=== PATIENT | female | born 1940 | race Caucasian/White ===

== ENCOUNTER → 2016-12-11 | Outpatient (CLI) | payer MEDICARE, BC ==
[~2016-12-11] MED LIST: COUMADIN5 MG PO; DIOVAN80 MG PO; PERCOCET 325 MG1 TA2 PO
== END ==
LOC: MC.RAD 12-05 09:20
DX: Z12.31 Encounter for screening mammogram for malignant neoplasm of breast (principal)

== ENCOUNTER → 2017-12-20 | Outpatient (CLI) | payer MEDICARE, BC | LOC: COL.RAD 09:48 | DX: M25.551 Pain in right hip (principal) | CPT/HCPCS: J3301; Q9967 ==

== ENCOUNTER → 2018-01-03 | Outpatient (CLI) | payer MEDICARE, BC | LOC: MC.RAD 07:47 | DX: Z12.31 Encounter for screening mammogram for malignant neoplasm of breast (principal) ==

== ENCOUNTER → 2018-11-19 | Outpatient (CLI) | payer MEDICARE, BC | LOC: COL.RAD 11-06 08:15 | DX: M51.26 Other intervertebral disc displacement, lumbar region (principal); M48.07 Spinal stenosis, lumbosacral region; M89.38 Hypertrophy of bone, other site; N28.1 Cyst of kidney, acquired ==

== ENCOUNTER → 2018-12-23 | Outpatient (CLI) | payer MEDICARE, BC | LOC: MHCPAIN 10:06 | DX: G89.29 Other chronic pain (principal); M47.817 Spondylosis without myelopathy or radiculopathy, lumbosacral region; M54.16 Radiculopathy, lumbar region; M53.3 Sacrococcygeal disorders, not elsewhere classified; M48.061 Spinal stenosis, lumbar region without neurogenic claudication | CPT/HCPCS: G0463 ==

== ENCOUNTER → 2019-01-06 | Outpatient (CLI) | payer MEDICARE, BC | LOC: MC.RAD 10:46 | DX: Z12.31 Encounter for screening mammogram for malignant neoplasm of breast (principal) ==

== ENCOUNTER → 2019-01-09 | Outpatient (CLI) | payer MEDICARE, BC | LOC: MHCPAIN 10:21 | DX: M47.817 Spondylosis without myelopathy or radiculopathy, lumbosacral region (principal); M54.16 Radiculopathy, lumbar region | CPT/HCPCS: J1100; Q9967 ==

== ENCOUNTER → 2019-01-13 | Outpatient (CLI) | payer MEDICARE, BC | LOC: MHCPAIN 10:41 | DX: G89.29 Other chronic pain (principal); M47.817 Spondylosis without myelopathy or radiculopathy, lumbosacral region; M54.16 Radiculopathy, lumbar region; M53.3 Sacrococcygeal disorders, not elsewhere classified; M48.061 Spinal stenosis, lumbar region without neurogenic claudication | CPT/HCPCS: G0463 ==

== ENCOUNTER 2019-04-21 13:43 | Emergency (ER) | payer MEDICARE, BC ==
[~2019-04-21] VITALS: Ht 160 cm; Wt 100.0 kg
[2019-04-21 14:02] VITALS: TEMP 97.9
[2019-04-21] MEDS ORDERED: COUMADIN 22.5 MG/TAB PO (14:09)
[2019-04-21] MEDS ORDERED: COUMADIN 5MG5 MG/TAB PO (14:09)
[2019-04-21] MEDS ORDERED: COZAAR100 MG PO (14:11)
[2019-04-21 14:26] LABS: BASO % 0.4 % (0.0-2.0); EOS % 0.4 % (0-4.0); GRAN # 7.8 (1.4-6.5); GRAN % 80.4 % (42.2-75.2); HEMATOCRIT 45.6 % (37.0-47.0); HEMOGLOBIN 14.1 g/dl (12.5-16.0); LYMPH # 0.8 (1.2-3.4); LYMPH % 8.2 % (20.0-51.0); MEAN CELL VOLUME 94 fl (80.0-100.0); MEAN CORPUSCULAR HEMOGLOBIN 29 pg (27.0-31.0); MEAN CORPUSCULAR HGB CONC 31 g/dl (33.0-37.0); MEAN PLATELET VOLUME 10.2 fl (7.4-10.4); MONO % 10.2 % (1.7-9.3); PLATELET COUNT 220 K/mm3 (130-400); RED BLOOD COUNT 4.85 M/mm3 (4.10-5.30); REDCELL DISTRIBUTION WIDTH-CV 13.2 % (11.5-14.5)
[2019-04-21 14:31] LABS: PROTHROMBIN TIME 23.6 SECONDS (9.7-12.8)
[2019-04-21] MEDS ORDERED: NORCO 325 MG-51 TAB PO (14:38)
--- NOTE | 2019-04-21 16:35 | NUR ---
TIM marion responded to a forensic social worker consult in the ED for the patient. The patient lives on the third floor of an apartment complex. The patient is the primary caregiver who recently was diagnosed with Parkinsons. TIM marion met with the patient and her to discuss a safe discharge from the ED. TIM marion contacted the patient's daughter Bridgette, to discuss options of placement with family or placment at a facility. The patient's daughter reports she would not be able to take the patient and patient's to her house in [place]. TIM marion priced nursing facilites and [facility] was chosen. The greene is $250 a day per person. The patient and the patient's daughter were agreeable to the greene. Edwar was going to get admit orders from the patient's PCP, Dr. Gutierrez. TIM marion faxed necessary information to Edwar. Edwar reports the patient will be transported at approximately 1700. TIM marion collaborated the above information with the patient's nurse.
[2019-04-21 17:15] VITALS: BP 148/90; PULSE 87
== END 2019-04-21 17:15 | disposition home or self-care (01) ==
LOC: COL.ER 13:43
PROVIDERS: Family Medicine
DX: S96.911A Strain of unspecified muscle and tendon at ankle and foot level, right foot, initial encounter (principal); Z79.01 Long term (current) use of anticoagulants; X50.1XXA Overexertion from prolonged static or awkward postures, initial encounter
CPT/HCPCS: J2270; J2405

== ENCOUNTER → 2020-01-08 | Outpatient (CLI) | payer MEDICARE, BC ==
[~2020-01-08] MED LIST changes: +COUMADIN 22.5 MG/TAB PO; +COUMADIN 5MG5 MG/TAB PO; +COZAAR100 MG PO; +NORCO 325 MG-51 TAB PO
== END ==
LOC: MC.RAD 10:00
DX: Z12.31 Encounter for screening mammogram for malignant neoplasm of breast (principal)

== ENCOUNTER 2020-02-24 19:50 | Inpatient (IN) | payer MEDICARE, BC ==
[~2020-02-24] VITALS: Ht 160 cm; Wt 104.6 kg
[2020-02-24 21:10] LABS: BASO % 0.3 % (0.0-2.0); EOS # 0.1 (0.0-0.7); EOS % 0.9 % (0-4.0); GRAN # 8.2 (1.4-6.5); GRAN % 79.9 % (42.2-75.2); HEMOGLOBIN 13.5 g/dl (12.5-16.0); LYMPH # 1.2 (1.2-3.4); LYMPH % 11.7 % (20.0-51.0); MEAN CELL VOLUME 91 fl (80.0-100.0); MEAN CORPUSCULAR HEMOGLOBIN 29 pg (27.0-31.0); MEAN CORPUSCULAR HGB CONC 31 g/dl (33.0-37.0); MEAN PLATELET VOLUME 10.1 fl (7.4-10.4); MONO # 0.7 (0.1-0.6); MONO % 6.9 % (1.7-9.3); PLATELET COUNT 233 K/mm3 (130-400); RED BLOOD COUNT 4.73 M/mm3 (4.10-5.30); REDCELL DISTRIBUTION WIDTH-CV 13.8 % (11.5-14.5)
[2020-02-24 21:13] LABS: INR 2.1 (0.8-3.0); PROTHROMBIN TIME 23.3 SECONDS (9.7-12.8)
[2020-02-24 21:19] LABS: BILIRUBIN,TOTAL 0.5 mg/dL (0.0-1.0); CREATININE, serum 1.1 (0.52-1.25)
[2020-02-24] MEDS ORDERED: ALLEGRA 60MG TA60 MG PO (22:39)
--- NOTE | 2020-02-24 23:45 | NUR ---
PT ARRIVES PER CART FROM ED. IS ALERT AND ORIENTED X4. HAS FRACTURED RT HIP/FEMUR. SL TO RIGHT AC. MOVED FROM CART TO BED WITH 3 ASSIST, HAS EXTREME PAIN WITH MOVING.
[2020-02-25] VITALS (7 sets, daily range): BP systolic 112–138; BP diastolic 37–62; PULSE 78–93; TEMP 97.8–98.7
--- NOTE | 2020-02-25 00:50 | NUR ---
PLACED #16FR HENLEY TO BSD BY GERTRUDIS HALL. PT HAS IMMEDIATE RETURN OF HAZY YELLOW URINE. PT TOLERATED PROCEDURE WITHOUT PROBLEM.
--- NOTE | 2020-02-25 00:58 | NUR ---
MEDICATED WITH DILAUDID 0.25MG IVP FOR RT LEG. EDEN AGUILAR AT BEDSIDE.
[2020-02-25 02:29] LABS: COLLECTION METHOD CATHETER
[2020-02-25 02:50] LABS: MUCOUS Present /lpf; PH 5 (5-8); SQUAMOUS EPITHELIAL None Seen /hpf; URINE APPEARANCE Hazy; URINE BACTERIA Rare /hpf; URINE BILIRUBIN Negative (NEGATIVE); URINE BLOOD 3+ (NEGATIVE); URINE COLOR Yellow; URINE GLUCOSE Negative (NEGATIVE); URINE KETONE 1+ (NEGATIVE); URINE LEUKOCYTE ESTERASE Negative (NEGATIVE); URINE NITRATE Negative (NEGATIVE); URINE PROTEIN(semi-quant) Negative (NEGATIVE); URINE RBC >50 /hpf; URINE UROBILINOGEN Negative (NEGATIVE)
--- NOTE | 2020-02-25 05:45 | NUR ---
MEDICATED WITH DILAUDID 0.25MG IVP FOR RT LEG PAIN.
[2020-02-25 07:45] LABS: BASO % 0.1 % (0.0-2.0); GRAN # 7.8 (1.4-6.5); GRAN % 80.5 % (42.2-75.2); HEMATOCRIT 38.3 % (37.0-47.0); HEMOGLOBIN 11.8 g/dl (12.5-16.0); LYMPH % 10.1 % (20.0-51.0); MEAN CELL VOLUME 92 fl (80.0-100.0); MEAN CORPUSCULAR HEMOGLOBIN 28 pg (27.0-31.0); MEAN CORPUSCULAR HGB CONC 31 g/dl (33.0-37.0); MEAN PLATELET VOLUME 10.5 fl (7.4-10.4); MONO # 0.9 (0.1-0.6); MONO % 8.9 % (1.7-9.3); PLATELET COUNT 242 K/mm3 (130-400); RED BLOOD COUNT 4.15 M/mm3 (4.10-5.30); REDCELL DISTRIBUTION WIDTH-CV 13.8 % (11.5-14.5)
[2020-02-25 07:46] LABS: INR 2.3 (0.8-3.0); PROTHROMBIN TIME 25.4 SECONDS (9.7-12.8)
--- NOTE | 2020-02-25 07:47 | NUR ---
Lying in bed in supine position. Does not notice pain in right leg when she is lying still but the pain increases significantly with movement. You to dependent drainage draining clear yellow urine. Bilat 2+ lower extremity edema noted, patient says this is chronic issue. Patient denies any needs or concerns at this time.
[2020-02-25 07:55] LABS: ALBUMIN 3.6 gm/dL (3.5-5.0); BILIRUBIN,TOTAL 0.7 mg/dL (0.0-1.0); CALCIUM 8.7 mg/dL (8.4-10.2); CREATININE, serum 1.05 (0.52-1.25); POTASSIUM 4.7 mmol/L (3.4-5.0); TOTAL PROTEIN 6.4 gm/dL (6.4-8.2)
--- NOTE | 2020-02-25 07:57 | NUR ---
Patient requests to have pain medication as she feels like the pain is starting to increase. Dilaudid administered as prescribed. Patient denies additional needs.
--- NOTE | 2020-02-25 09:54 | NUR ---
Rating pain in right leg 10/10 and would like pain medication. Hopkins administered as prescribed.
--- NOTE | 2020-02-25 10:31 | NUR ---
ANTONIA met with the patient to discuss discharge plan. The patient resides at [facility] in Assisted Living with her , Indio (ph#[phone]). She states that her recently broke his hip and is in the rehab unit at [facility] at this time. She reports independence with ADLs and has a walker. She states that [facility] helps her once a week with a good bath. The patient's PCP is Dr. Kylah Ambrose and she receives her medications at [facility]. She reports no difficulties obtaining her meds. The patient does not have advanced directives in EMR, but she states that she does have a DPOA-HC completed and that [facility] should have a copy of it. She states that her DPOA-HC may be her three children. The patient had a right hip fracture. ANTONIA discussed post-acute rehab. The patient reports that she is interested in rehab and her only preference is rehab at [facility]. ANTONIA contacted and faxed a referral to Edwar at [facility]. ANTONIA also requested a copy of the patient's advanced directives. SW awaiting their screen.
--- NOTE | 2020-02-25 11:20 | NUR ---
Lying in bed with eyes closed, opens eyes when name called out. Rates pain in right leg 5/10, dull ache. Offered pain medication and the patient declines at this time. Explain that if she feels that she needs something to let me know. Patient has ice pack to right hip. Denies any additional needs at this time.
[2020-02-25 14:01] LABS: INR 2.5 (0.8-3.0); PROTHROMBIN TIME 28.2 SECONDS (9.7-12.8)
--- NOTE | 2020-02-25 15:47 | NUR ---
Having significant amount of pain in right leg and would like pain medication. Administer [place] as prescribed. Patient remains lying in bed with eyes open. Denies additional needs or concerns at this time.
--- NOTE | 2020-02-25 16:52 | NUR ---
Start phytonadione infusion and this nurse remains at bedside during infusion. Patient continues to rate pain in right leg 10/10 and would like pain medication when the infusion has completed.
--- NOTE | 2020-02-25 17:04 | NUR ---
Infusion has completed, patient tolerates without difficulty. LR resumed as previously ordered.
--- NOTE | 2020-02-25 17:31 | NUR ---
Administer Dilaudid as prescribed per patient request due to pain rating 10/10. Patient lying in bed with eyes open. Refused dinner tray, just wants some vanilla pudding and saltine crackers, will provide at this time. Patient denies additional needs.
--- NOTE | 2020-02-25 18:08 | NUR ---
Lying in bed with eyes closed. Respirations even and unlabored. No signs or symptoms of discomfort noted at this time.
--- NOTE | 2020-02-25 21:15 | NUR ---
Pt. laying in bed. Pt. is A&OX3, assessment complete. IV to rt. ac patent, IV fluids infusing per orders. Pt. reports pain to rt. hip at a 4 on pain scale, gave pain meds per orders. Pt. denies further needs, call light within reach.
[2020-02-26] VITALS (9 sets, daily range): BP systolic 100–122; BP diastolic 30–78; PULSE 76–96; TEMP 97.7–98.6
[2020-02-26 07:59] LABS: INR 1.4 (0.8-3.0); PROTHROMBIN TIME 15.2 SECONDS (9.7-12.8)
--- NOTE | 2020-02-26 08:00 | NUR ---
Patient in bed resting. Alert and oriented x 3. Assessment complete. Anxious about procedure this afternoon. Fluids infusing per orders to right AC. Edema to BLE noted, patient states LLE is typically swollen d/t varicose veins. You to dependent drainage with pam urine present. States pain controlled at this time. Denies further needs at this time.
[2020-02-26 08:02] LABS: BASO % 0.4 % (0.0-2.0); EOS # 0.1 (0.0-0.7); EOS % 1.9 % (0-4.0); GRAN # 5.2 (1.4-6.5); GRAN % 70.2 % (42.2-75.2); HEMATOCRIT 31.9 % (37.0-47.0); HEMOGLOBIN 9.7 g/dl (12.5-16.0); LYMPH # 1.1 (1.2-3.4); LYMPH % 15.2 % (20.0-51.0); MEAN CELL VOLUME 93 fl (80.0-100.0); MEAN CORPUSCULAR HEMOGLOBIN 28 pg (27.0-31.0); MEAN CORPUSCULAR HGB CONC 30 g/dl (33.0-37.0); MEAN PLATELET VOLUME 10.3 fl (7.4-10.4); MONO # 0.9 (0.1-0.6); MONO % 11.9 % (1.7-9.3); PLATELET COUNT 203 K/mm3 (130-400); RED BLOOD COUNT 3.42 M/mm3 (4.10-5.30); REDCELL DISTRIBUTION WIDTH-CV 13.9 % (11.5-14.5)
[2020-02-26 08:11] LABS: CALCIUM 8.2 mg/dL (8.4-10.2); CREATININE, serum 0.78 (0.52-1.25); POTASSIUM 4.4 mmol/L (3.4-5.0)
--- NOTE | 2020-02-26 09:16 | NUR ---
Left VM for daughter, Bridgette, wanted to know if patient will be going to surgery today.
--- NOTE | 2020-02-26 09:52 | NUR ---
Updated family on surgery time.
--- NOTE | 2020-02-26 10:26 | NUR ---
ANTONIA attended clinical rounds. The patient is to have surgery today. ANTONIA followed up with the patient. The patient is nervous for surgery and being in pain afterwards. SW provided support. The patient states that her son, Mani, will be coming to visit her today. ANTONIA was able to obtain her daughter's phone number in her physical chart. ANTONIA then contacted the patient's daughter, Bridgette (ph#[phone]). Bridgette lives in [place], [place]. ANTONIA updated Bridgette about surgery today and d/c plan. Bridgette would like a call from the doctor. ANTONIA notified the hospitalist, Dr. Alfaro. Bridgette is in agreeance to rehab at [facility]. Bridgette also confirms that the patient has a DPOA-HC and that the document is in the patient's safety deposit box in her apartment. Bridgette states that the patient's DPOA-HC is her and then she believes is desigates her and her two siblings: Mani and Mckay. ANTONIA to fax updates to [facility] and will continue to follow.
--- NOTE | 2020-02-26 10:34 | NUR ---
Contacted Dr. Jacinto for orders for consent.
--- NOTE | 2020-02-26 10:37 | NUR ---
Patient to OR by bed.
--- NOTE | 2020-02-26 10:48 | NUR ---
First visit from the perlite grinder. No needs right now.
--- NOTE | 2020-02-26 15:00 | NUR ---
Warfarin Initial Dosing Pharmacy Note Ordering Provider: Rupali Jacinto Indication: VTE Prophylaxis LABS: INR 1.4 Recommendation: Restart home regimen, and follow daily PT/INR Home Regimen: 5 mg by mouth on Sun, Sun, Sun, Michelle, Sat. 2.5 mg on Sun & Sun.
--- NOTE | 2020-02-26 15:45 | NUR ---
Patient up from OR, Drowsy but arouses to voice and touch. Post op fluids infusing per orders. Occlusive dressing to right hip is CDI. Ice to right hip. Will continue to monitor.
--- NOTE | 2020-02-26 15:54 | NUR ---
Notified Hospitalist and Dr. Jacinto of low DBP. No new orders at this time. Will continue to monitor.
--- NOTE | 2020-02-26 18:41 | NUR ---
Patient has done well this afternoon. Drowsy after surgery but more awake this afternoon. Complains of knee pain 01/25, medications given per orders. Son at bedside. Reported off to awake overnight counselor.
--- NOTE | 2020-02-26 20:15 | NUR ---
Pt. laying in bed at this time. Pt. is A&OX3, assessment complete. IV to rt. ac patent, IV fluids infusing per orders. Pt. reports pain at a 10 on pain scale, gave pain med per orders. Dressing to rt. hip CDI. Pt. denies further needs, call light within reach.
[2020-02-27] VITALS (7 sets, daily range): BP systolic 102–124; BP diastolic 30–84; PULSE 97–110; TEMP 97.7–98.7
[2020-02-27 07:30] LABS: HEMATOCRIT 22.7 % (37.0-47.0)
--- NOTE | 2020-02-27 07:34 | NUR ---
All pulses palpable. Complains of RLE pain rating 10/10. Pain medication has been administered per physician orders. Ice pack in place to R hip, offered repositioning. Does not want breakfast at this time due to nausea. Alternatives offered.
[2020-02-27 07:49] LABS: INR 1.2 (0.8-3.0); PROTHROMBIN TIME 13.7 SECONDS (9.7-12.8)
[2020-02-27 07:52] LABS: CALCIUM 7.6 mg/dL (8.4-10.2)
--- NOTE | 2020-02-27 10:40 | NUR ---
PATIENT REFUSING LOWER EXTREMITY DOPPLER, FOR THE SECOND TIME.
--- NOTE | 2020-02-27 11:22 | NUR ---
Noted IV to R AC to be infiltrated. Catheter removed at this time. Attempted to insert IV to R hand x1 attempt with 20G, but was not successful. Primary nurse notified.
--- NOTE | 2020-02-27 12:02 | NUR ---
AIVS COMING TO TRY AND START NEW IV SITE.
--- NOTE | 2020-02-27 12:15 | NUR ---
PATIENT REPORTS PAIN IS MINIMAL AT REST BUT SEVERE WITH ACTIVITY. PT COMING BACK AFTER LUNCH. PATIENT STATES SHE DOESN'T UNDERSTAND WHY WE DON'T JUST LEAVE HER ALONE. NURSING EXPLAINED HOW IMPORTANT PT IS AFTER A HIP FX. EVEN WITH MEDICATION, PATIENT SCREAM WITH ANY MOVEMENT AND MAKES STATES LIKE "LET ME ". PATIENT SEEMS TO HAVE A DIFFICULT TIME FOLLOWING THE REASONING FOR THINGS LIKE PT, OT AND EVEN BLOOD TRANSFUSION. PATIENT SEEMS TO HAVE SOME UNDERLINED FORGETFULNESS. SON AT BEDSIDE.
--- NOTE | 2020-02-27 14:20 | NUR ---
LAB AT BEDSIDE TO OBTAIN A REPEAT H&H
[2020-02-27 14:34] LABS: HEMATOCRIT 22.5 % (37.0-47.0); HEMOGLOBIN 7.1 g/dl (12.5-16.0)
--- NOTE | 2020-02-27 15:00 | NUR ---
ANTONIA attended clinical rounds. The patient may be able to d/c tomorrow, 02/27. ANTONIA notified and faxed updates to Edwar at [facility]. Edwar reports that they are able to accept the patient for a skilled stay. ANTONIA met with the patient and her son, Clayton, to inform and review d/c plan. The patient states that she is in a lot of pain and is hesitant to work with therapy. ANTONIA and Clayton provided support and encouraged the patient to work with therapy. The patient and Clayton are agreeable with going to [facility]. ANTONIA presented and read the IM form outloud to the patient. The patient would like some time to look over the form. ANTONIA to continue to follow.
--- NOTE | 2020-02-27 21:40 | NUR ---
PT IN BED. REPORTS PAIN TO RIGHT LEG "BURNING" SENSATION AT THIS TIME. MEDICATED WITH HS MEDS INCLUDING OXYCODONE 10MG PO. LOWERED PTS HEAD FOR ASSESSMENT AND HENLEY CARE, PT IMMEDIATELY STARTED SCREAMING. ENCOURAGED TO DEEP BREATHE AND RELAX. PT HAS BULKY DRESSING TO RIGHT HIP. HAS HENLEY TO BSD WITH YELLOW URINE. REFUSES TO BE MOVED. HAS SCDS ON BILATERALLY, GEORGI HOSE ON WELL. SL TO RIGHT HAND. REPLACED ICE PACK AT THIS TIME.
[2020-02-28] VITALS (10 sets, daily range): BP systolic 100–118; BP diastolic 29–51; PULSE 93–112; TEMP 97.5–98.9
--- NOTE | 2020-02-28 06:00 | NUR ---
PT GROANING LOUDLY, RUBBING STOMACH AND REPORTS FEELING "CRAMPING" IN HER STOMACH. OFFERED SPRITE, SHE REFUSED. ENCOURAGED TO REPOSITION, SHE REFUSED. OFFERED BEDPAN OR BSC TO TRY TO PASS GAS, SHE REFUSED. WILL MONITOR FOR CHANGES.
[2020-02-28 07:08] LABS: INR 1.2 (0.8-3.0); PROTHROMBIN TIME 13.8 SECONDS (9.7-12.8)
[2020-02-28 08:20] LABS: HEMOGLOBIN 6.9 g/dl (12.5-16.0)
--- NOTE | 2020-02-28 08:31 | NUR ---
CLEMENTINE FINCH CALLED AND NOTIFIED OF CRITICAL HEMAGLOBIN RESULT OF 6.9. 1 UNIT OF PRBC ALREADY ORDERED. NO OTHER ORDERS AT THIS TIME.
[2020-02-28] MEDS ORDERED: VITAMIN C500 MG PO (09:00)
[2020-02-28] MEDS ORDERED: DUO-KAPS1 CAP PO (09:00)
[2020-02-28] MEDS ORDERED: OSCAL 500 TAB500 MG PO (09:00)
[2020-02-28] MEDS ORDERED: NORCO 325 MG-51 TAB PO (09:03)
[2020-02-28 09:25] LABS: CALCIUM 7.8 mg/dL (8.4-10.2); CREATININE, serum 0.88 (0.52-1.25); POTASSIUM 4.4 mmol/L (3.4-5.0)
--- NOTE | 2020-02-28 09:55 | NUR ---
PATIENT MORNING ASSESSMENT COMPLETED AT THIS TIME. PATIENT AM MEDICATIONS GIVEN.
--- NOTE | 2020-02-28 10:31 | NUR ---
BLOOD TRANSFUSION STARTED AT 60 ML/HR. THIS NURSE PRESENT AT THE BEDSIDE FOR THE FIRST 15 MINUTES. PATIENT TOLERATING WELL.
--- NOTE | 2020-02-28 10:44 | NUR ---
HENLEY CATHETER DISCONTINUED AT THIS TIME PER ORDERS. BALLOON TIP INTACT. 9MLS ASPIRATED FROM BALLOON. PERICARE PROVIDED.
--- NOTE | 2020-02-28 11:01 | NUR ---
BLOOD TRANSFUSION RATE INCREASED TO 120 ML/HR. VSS. SON PRESENT AT THE BEDSIDE.
--- NOTE | 2020-02-28 12:47 | NUR ---
SW update: Faxed DC orders, awaiting transport time.
--- NOTE | 2020-02-28 13:15 | NUR ---
myself and primary nurse brought up concerns of patient ability to transfer to a wheelchahir to the hospitalist around this time, she has been refusing PT/OT and is a very heavy assist for mobility and we beleived anEMS transfer would be most appropriate and safe for the patient, the hospitalist then spoke with the patient and her son and discussed working with PT to get to wheelchair for transfer to [facility], the patient continued to be very apprehensive about working with us to get transferred from bed to wheelchair, with the help of myself and two PT's we were able to safely transfer patient to a wheelchair that was an appropriate size for the patient, once bed to w/c transfer was completed pain medication was given to the patient by another nurse on the Surgical unit as transportation was set up by social work to pick patient up at 1400, son was present at this time as well nurse on the unit
--- NOTE | 2020-02-28 13:25 | NUR ---
BLOOD TRANSFUSION COMPLETE WITHOUT ANY ADVERSE REACTIONS. POST TRANSFUSION VSS.
--- NOTE | 2020-02-28 14:00 | NUR ---
PATIENT VOIDING SUFFICIENTLY POST HENLEY REMOVAL PER BUSINESS CONTINUITY PLANNER. THIS NURSE WAS NOT PRESENT WHEN PATIENT VOIDED.
--- NOTE | 2020-02-28 14:54 | NUR ---
IV PAIN MEDICATION GIVEN PRIOR TO IV BEING REMOVED AND PATIENT TRANSFER. AT THIS TIME. INT DISCONTINUED. PATIENT TOLERATED WELL. AWAITING PRIVATE TRANSPORT VEHICLE ARRIVAL. PATIENT PERSONAL BELONGINGS GATHERED. PATIENT WAS TRANSFERRED INTO A WHEELCHAIR WITH PHYSICAL THERAPY AND NURSING STAFF. NO NEEDS AT THIS TIME.
--- NOTE | 2020-02-28 15:00 | NUR ---
PATIENT AND SON NOTIFIED THAT THE [employer] HAD CALLED THIS NURSE AND THE TRANSPORTATION PICK-UP TIME HAS BEEN MOVED TO 1600. PATIENT STATES THAT SHE FEELS THAT SHE MIGHT NEED TO USE THE RESTROOM. PATIENT EDUCATED THAT SHE WOULD HAVE TO BE TRANSFERRED FROM THE WHEELCHAIR TO A COMMODE TO USE THE RESTROOM. PATIENT IS UPSET THAT THE HENLEY CATHETER WAS REMOVED. PATIENT DID NOT QUESTION THE REMOVAL OF THE CATHETER PRIOR TO THIS TIME. PATIENT STATES THAT SHES NOT SURE IF SHE WILL BE ABLE TO GO, AND WAS UNINTERESTED IN GETTING UP TO THE COMMODE AT THIS TIME. THIS NURSE TOLD THE PATIENT TO LET HER KNOW IF SHE CHANGED HER MIND AND WANTED TO GET UP TO GO TO THE BATHROOM, AND NURSING STAFF WOULD ASSIST HER. PATIENT AND SON DENIED ANY OTHER NEEDS AT THIS TIME.
--- NOTE | 2020-02-28 15:55 | NUR ---
PATIENT TAKEN DOWN TO THE ED TO THE [facility] TRANSPORATION PICK-UP PERSONNEL WITH PERSONAL BELONGINGS AND SON. WILL CALL REPORT TO [facility] NURSE. PATIENT TRANSFERRED.
--- NOTE | 2020-02-28 16:20 | NUR ---
THIS NURSE ATTEMPTED TO CALL REPORT TO [facility] EMERGENCY DE[facility]. NO ANSWER. MESSAGE LEFT FOR NURSE. WILL TRY TO CALL REPORT AGAIN.
--- NOTE | 2020-02-28 16:53 | NUR ---
ISABEL SOLORIO NOTIFIED THIS NURSE THAT ISABEL HINDS CALLED, WHO WAS SITTING AT THE ED ENTRANCE SCREENING PATIENTS. THAT THE PATIENT WAS STILL SITTING IN THE ED ENTRANCE WAITING FOR TRANSPORTATION. THE TRANSPORTATION VEHICLE HAD BEEN THERE AND LEFT WITHOUT THE PATIENT. FAMILY MEMBER IS SITTING WITH THE PATIENT AT THIS TIME. UTILITY WORKER DRIVER CALLED AND NOTIFIED THAT THE TRANSPORTATION VEHICLE HAD LEFT THE PATIENT IN THE ED. THIS NURSE IS UNABLE TO GET AHOLD OF THE NURSING STAFF AT [facility] TO GIVE REPORT ON THE PATIENT. UTILITY WORKER DRIVER FADUMO ASKED THAT THIS NURSE CONTACT THE [employer] C[employer] BRANDI WHO HAD LEFT FOR THE DAY TO GET A DIFFERENT NUMBER TO FIGURE OUT WHAT IS GOING ON WITH TRANSPORTATION AND REPORT.
--- NOTE | 2020-02-28 16:56 | NUR ---
REPORT CALLED TO ISABEL YOUNG AT [facility]. NURSE IS AWARE OF TRANSPORTATION HAVING ISSUES WITH GETTING THE WHEELCHAIR INTO THEIR TRANSPORTATION VAN. THEY ARE WORKING TO FIND ANOTHER WHEELCHAIR TO GET THE PATIENT TRANSFERRED TO THEIR FACILITY. THE PATIENT IS CURRENTLY SITTING IN THE EMERGENCY DEPARTMENT. GEAR AND SPLINE GRINDER AWARE OF SITUATION. THE CURRENT DIE TRY OUT WORKER STAMPING OF THEIR TRANSPORTATION VEHICLE ISNT REGISTERED TO DRIVE THEIR OTHER TRANSPORTATION VEHICLE.
--- NOTE | 2020-02-28 17:05 | NUR ---
[facility] [facility] [facility] CALLED AND NOTIFIED THAT THE TRANSPORTATION VEHICLE WAS ON THEIR WAY. MARY STATED THAT THEY WERE PULLING UP NOW. CHARGE NURSE ISABEL BYRNE NOTIFIED. THIS NURSE AND HO MALDONADO WENT DOWN TO ED TO ASSIST WITH PATIENT TRANSFER. ISABEL BYRNE CAME DOWN TO ED AFTER ATTENDING TO ANOTHER PATIENT.
--- NOTE | 2020-02-28 18:30 | NUR ---
THIS NURSE SPOKE WITH SELMA HEREDIA AT [facility]. NURSE NOTIFIED OF THE TRANSPORTION ISSUES AND THE LACK OF COMMUNICATION BETWEEN [facility] TRANSPORTATION AND THIS NURSE. PATIENT WAS WAITING IN A WHEELCHAIR FOR SEVERAL HOURS PRIOR TO BEING ABLE TO BE TRANSFERRED TO THEIR FACILITY ULTIMATELY BY EMS. PATIENT HAD SAT IN THE ED ENTRANCE WAITING FOR A RIDE FOR ALMOST AN HOUR PRIOR TO THIS NURSE BEING NOTIFIED THAT [facility] TRANSPORTATION WERE UNABLE TO GET THE PATIENTS WHEELCHAIR INTO THE VAN AND THE PATIENT WAS STILL SITTING IN THE ED. NURSE MADE AWARE THAT THE PATIENT NEEDS TO TAKE SOMETHING FOR PAIN SOON SHE ARRIVES. THE PATIENT HAS BEEN REFUSING MOST OF HER MEALS AND FEELS SICK TO HER STOMACH. PATIENT NEEDS TO EAT WITH THE PAIN MEDICATION. EMESIS BAG GIVEN TO PATIENT PRIOR TO HER LEAVING WITH EMS.
== END 2020-02-28 15:55 | DRG 481 ==
LOC: COL.ER 19:50 → SURG 23:19
PROVIDERS: Family Medicine; Nurse Practitioner Family; Orthopaedic Surgery; Physician Assistant; ADMIT Student in an Organized Health Care Education/Training Program
PROC: 0QS806Z Reposition Right Femoral Shaft with Intramedullary Internal Fixation Device, Open Approach (ICD-10-PCS; principal; 2020-02-26 13:00)
DX: S72.21XA Displaced subtrochanteric fracture of right femur, initial encounter for closed fracture (principal); D62 Acute posthemorrhagic anemia; I10 Essential (primary) hypertension; S00.03XA Contusion of scalp, initial encounter; R73.9 Hyperglycemia, unspecified; Z66 Do not resuscitate; Z86.718 Personal history of other venous thrombosis and embolism; Z79.01 Long term (current) use of anticoagulants; Z88.0 Allergy status to penicillin; Z88.1 Allergy status to other antibiotic agents; Z88.6 Allergy status to analgesic agent; Z88.2 Allergy status to sulfonamides; W19.XXXA Unspecified fall, initial encounter
CPT/HCPCS: 99223-AI; 99232-AI; 99239; A4314; A9284; C1713; J0690; J1170; J2250; J2270; J2370; J2405; J2550; J2704; J2795; J3010; J3430; J7120; J7121; P9016

== ENCOUNTER → 2020-03-08 | Outpatient (CLI) | payer MEDICARE, BC ==
[~2020-03-08] MED LIST changes: +ALLEGRA 60MG TA60 MG PO; +DUO-KAPS1 CAP PO; +OSCAL 500 TAB500 MG PO; +VITAMIN C500 MG PO
[2020-03-08 17:23] LABS: INR 2.1 (0.8-3.0)
== END ==
LOC: ZLAB.STJ 15:52
PROVIDERS: Internal Medicine
DX: Z79.01 Long term (current) use of anticoagulants (principal)

== ENCOUNTER 2020-03-17 16:38 | Emergency (ER) | payer MEDICARE, BC ==
[~2020-03-17] VITALS: Ht 160 cm; Wt 95.5 kg
[2020-03-17 16:40] VITALS: TEMP 98.2
[2020-03-17 18:00] LABS: BASO % 0.4 % (0.0-2.0); EOS # 0.1 (0.0-0.7); EOS % 1.8 % (0-4.0); GRAN # 5.7 (1.4-6.5); GRAN % 73.9 % (42.2-75.2); HEMOGLOBIN 10.5 g/dl (12.5-16.0); LYMPH # 1.1 (1.2-3.4); LYMPH % 13.7 % (20.0-51.0); MEAN CELL VOLUME 95 fl (80.0-100.0); MEAN CORPUSCULAR HEMOGLOBIN 29 pg (27.0-31.0); MEAN CORPUSCULAR HGB CONC 31 g/dl (33.0-37.0); MEAN PLATELET VOLUME 8.7 fl (7.4-10.4); MONO # 0.7 (0.1-0.6); MONO % 9.5 % (1.7-9.3); PLATELET COUNT 480 K/mm3 (130-400); RED BLOOD COUNT 3.61 M/mm3 (4.10-5.30); REDCELL DISTRIBUTION WIDTH-CV 16.1 % (11.5-14.5)
[2020-03-17] MEDS ORDERED: COUMADIN 22.5 MG/TAB PO (18:00)
[2020-03-17] MEDS ORDERED: TYLENOL 500MG500 MG PO (18:01)
[2020-03-17] MEDS ORDERED: COUMADIN 5MG5 MG/TAB PO (18:01)
[2020-03-17] MEDS ORDERED: COLACE 100100 MG/CAP PO (18:02)
[2020-03-17] MEDS ORDERED: GENTLE LAXATIVE10 MG RC (18:02)
[2020-03-17] MEDS ORDERED: MIRALAX PA17 GM/Dose PO (18:02)
[2020-03-17] MEDS ORDERED: ULTRAM ER100 MG PO (18:03)
[2020-03-17] MEDS ORDERED: ZOFRAN 4MG T4 MG/TAB PO (18:03)
[2020-03-17 18:06] LABS: HEMATOCRIT 34.2 % (37.0-47.0)
[2020-03-17 18:11] LABS: INR 5.1 (0.8-3.0); PROTHROMBIN TIME 58.1 SECONDS (9.7-12.8)
[2020-03-17 18:22] LABS: C-REACTIVE PROTEIN 3.9 mg/dL (0.0-0.9); CREATININE, serum 0.6 (0.52-1.25); POTASSIUM 4.1 mmol/L (3.4-5.0)
[2020-03-17 21:00] VITALS: BP 135/73; PULSE 94
== END 2020-03-17 21:15 | disposition home or self-care (01) ==
LOC: COL.ER 16:38
PROVIDERS: Emergency Medicine
DX: K59.4 Anal spasm (principal); Z88.0 Allergy status to penicillin; Z88.2 Allergy status to sulfonamides; Z88.6 Allergy status to analgesic agent; Z88.8 Allergy status to other drugs, medicaments and biological substances; Z88.3 Allergy status to other anti-infective agents; Z88.1 Allergy status to other antibiotic agents; Z79.01 Long term (current) use of anticoagulants

== ENCOUNTER → 2020-09-24 | Outpatient (CLI) | payer MEDICARE, BC ==
[~2020-09-24] MED LIST changes: +COLACE 100100 MG/CAP PO; +GENTLE LAXATIVE10 MG RC; +MIRALAX PA17 GM/Dose PO; +TYLENOL 500MG500 MG PO; +ULTRAM ER100 MG PO; +ZOFRAN 4MG T4 MG/TAB PO
[2020-09-24 14:44] LABS: COLLECTION METHOD CLEAN CATCH
[2020-09-24 14:57] LABS: MUCOUS Present /lpf; PH 6 (5-8); URINE APPEARANCE Cloudy; URINE BACTERIA Rare /hpf; URINE BILIRUBIN Negative (NEGATIVE); URINE BLOOD Negative (NEGATIVE); URINE COLOR Yellow; URINE GLUCOSE Negative (NEGATIVE); URINE KETONE Negative (NEGATIVE); URINE LEUKOCYTE ESTERASE 2+ (NEGATIVE); URINE NITRATE Negative (NEGATIVE); URINE PROTEIN(semi-quant) 1+ (NEGATIVE); URINE UROBILINOGEN Negative (NEGATIVE)
== END ==
LOC: ZLAB.STJ 13:25
PROVIDERS: Internal Medicine
DX: R35.0 Frequency of micturition (principal)

== ENCOUNTER → 2021-01-04 | Outpatient (CLI) | payer MEDICARE, BC ==
[2021-01-04 12:53] LABS: ALBUMIN 3.7 gm/dL (3.5-5.0); BILIRUBIN,TOTAL 0.6 mg/dL (0.0-1.0); CALCIUM 9.1 mg/dL (8.4-10.2); CREATININE, serum 0.79 (0.52-1.25); POTASSIUM 4.2 mmol/L (3.4-5.0); TOTAL PROTEIN 7.1 gm/dL (6.4-8.2)
== END ==
LOC: ZLAB.STJ 12:03
PROVIDERS: Internal Medicine
DX: I10 Essential (primary) hypertension (principal)

== ENCOUNTER → 2021-02-21 | Outpatient (CLI) | payer MEDICARE, BC ==
[2021-02-21 13:37] LABS: COLLECTION METHOD CLEAN CATCH
[2021-02-21 14:17] LABS: MUCOUS Present /lpf; PH 6 (5-8); SQUAMOUS EPITHELIAL 0-2 /hpf; URINE APPEARANCE Hazy; URINE BACTERIA None Seen /hpf; URINE BILIRUBIN Negative (NEGATIVE); URINE BLOOD 2+ (NEGATIVE); URINE COLOR Yellow; URINE GLUCOSE Negative (NEGATIVE); URINE KETONE Negative (NEGATIVE); URINE LEUKOCYTE ESTERASE Negative (NEGATIVE); URINE NITRATE Negative (NEGATIVE); URINE PROTEIN(semi-quant) Negative (NEGATIVE); URINE RBC 20-50 /hpf; URINE UROBILINOGEN Negative (NEGATIVE)
== END ==
LOC: ZLAB.STJ 12:47
PROVIDERS: Internal Medicine
DX: R30.9 Painful micturition, unspecified (principal)

== ENCOUNTER → 2021-03-15 | Outpatient (CLI) | payer MEDICARE, BC | LOC: COL.RAD 13:00 | DX: S72.21XD Displaced subtrochanteric fracture of right femur, subsequent encounter for closed fracture with routine healing (principal); M17.11 Unilateral primary osteoarthritis, right knee; M16.11 Unilateral primary osteoarthritis, right hip; Z98.890 Other specified postprocedural states ==

== ENCOUNTER → 2021-07-13 | Outpatient (CLI) | payer MEDICARE, BC ==
[2021-07-13 10:02] LABS: COLLECTION METHOD CLEAN CATCH
[2021-07-13 10:54] LABS: AMORPHOUS CRYSTAL Present (NOT PRESENT); MUCOUS Present (NOT PRESENT); PH 7 (5-8); SQUAMOUS EPITHELIAL 0-2 /hpf (0-10); URINE APPEARANCE Hazy (CLEAR/HAZY); URINE BACTERIA None Seen /hpf (NONE SEEN); URINE BILIRUBIN Negative (NEGATIVE); URINE BLOOD 3+ (NEGATIVE); URINE COLOR Yellow (YELLOW); URINE GLUCOSE Negative (NEGATIVE); URINE KETONE Negative (NEGATIVE); URINE LEUKOCYTE ESTERASE Negative (NEGATIVE); URINE NITRATE Negative (NEGATIVE); URINE PROTEIN(semi-quant) Negative (NEGATIVE); URINE RBC >50 /hpf (0-2); URINE UROBILINOGEN Negative (NEGATIVE)
== END ==
LOC: ZLAB.STJ 09:55
PROVIDERS: Internal Medicine
DX: I10 Essential (primary) hypertension (principal)

== ENCOUNTER → 2021-07-28 | Outpatient (CLI) | payer MEDICARE, BC | LOC: COL.RAD 09:40 | DX: N30.00 Acute cystitis without hematuria (principal); N20.0 Calculus of kidney | CPT/HCPCS: Q9967 ==

== ENCOUNTER 2021-09-22 05:24 | Day surgery (SDC) | payer MEDICARE, BC ==
[2021-09-22] VITALS (7 sets, daily range): BP systolic 130–145; BP diastolic 57–69; PULSE 77–87; TEMP 97.4–98.1
[~2021-09-22] VITALS: Ht 162.6 cm; Wt 87.3 kg
[2021-09-22] MEDS ORDERED: NORVASC2.5 MG PO (06:35)
[2021-09-22] MEDS ORDERED: COZAAR100 MG PO (06:36)
[2021-09-22] MEDS ORDERED: SENNA-LAX8.6 MG PO (06:37)
[2021-09-22] MEDS ORDERED: VITAMIN D31000 I1 PO (06:38)
[2021-09-22] MEDS ORDERED: CLEOCIN HCL300 MG PO (06:41)
--- NOTE | 2021-09-22 09:05 | NUR ---
Patient returns to room 8 per cart from PACU accompanied by Brittanie RN and is awake and alert. Temp 97.1 and room air sats 98%. IV fluids infusing and site is free of redness or swelling. Sipping on juice. Denies pain or nausea. Call light in reach.
--- NOTE | 2021-09-22 09:20 | NUR ---
Taking sips of water and grape juice. Continues to deny pain or nausea.
--- NOTE | 2021-09-22 09:35 | NUR ---
Resting and talking with daughter.
--- NOTE | 2021-09-22 09:50 | NUR ---
Eating toast and sipping on water and juice.
--- NOTE | 2021-09-22 10:05 | NUR ---
Continues to sip on juice. Denies pain or nausea.
--- NOTE | 2021-09-22 10:21 | NUR ---
Patient assisted up to the bathroom and gait is steady. Uses walker for transferring.
--- NOTE | 2021-09-22 10:40 | NUR ---
Dismissal instructions given. IV discontinued and site is free of redness. Assisted patient with dressing. Voided blood tinged urine with few small clots noted. Instructed to force fluids to help clear urine. Provided office number for questions and concerns.
--- NOTE | 2021-09-22 10:47 | NUR ---
Patient assisted into wheelchair taken to the front door. Assisted into vehicle with driven by daughter and dismissed to home.
== END 2021-09-22 10:47 | disposition home or self-care (01) ==
LOC: SDCO 05:24
DX: N20.0 Calculus of kidney (principal)
CPT/HCPCS: C1769; C2617; J0690; J1100; J1885; J2405; J2704; J3010; J7120; Q9967

== ENCOUNTER → 2024-02-19 | Outpatient (CLI) | payer MEDICARE, BC ==
[~2024-02-19] MED LIST changes: +CLEOCIN HCL300 MG PO; +NORVASC2.5 MG PO; +SENNA-LAX8.6 MG PO; +VITAMIN D31000 I1 PO
[2024-02-19 14:34] LABS: CREATININE, serum 1.38 mg/dL (0.57-1.11)
== END ==
LOC: COL.LAB 13:30
DX: R31.0 Gross hematuria (principal)

== ENCOUNTER → 2024-02-25 | Outpatient (CLI) | payer MEDICARE, BC ==
[~2024-02-25] MED LIST changes: +Iohexol 300 - 100 ML VIAL IV ONE; +NS 100 ML IV SCH
== END ==
LOC: COL.RAD 13:28
DX: N20.0 Calculus of kidney (principal); K44.9 Diaphragmatic hernia without obstruction or gangrene
CPT/HCPCS: Q9967

== ENCOUNTER 2024-04-08 12:31 | Day surgery (SDC) | payer MEDICARE, BC ==
[~2024-04-08] VITALS: Ht 160 cm; Wt 71.7 kg
[~2024-04-08 12:31] MED LIST changes: -Iohexol 300 - 100 ML VIAL IV ONE; +LR 1,000 ML IV SCH; -NS 100 ML IV SCH
[2024-04-08] MEDS ORDERED: fentaNYL 50 MCG/ML 2 ML VIAL ONE (14:04)
[2024-04-08] MEDS ORDERED: Lidocaine PF 2% (20 MG/ML) 5 ML VIAL ONE (14:04)
[2024-04-08] MEDS ORDERED: Ondansetron 4 MG/2 ML VIAL ONE (14:04)
[2024-04-08] MEDS ORDERED: dexAMETHasone 10 MG/ML VIAL ONE (14:04)
[2024-04-08 14:11] VITALS: BP 158/75; PULSE 90; TEMP 97.6
[2024-04-08 14:25] LABS: CALCIUM 9.8 mg/dL (8.4-10.2); CREATININE, serum 0.83 mg/dL (0.57-1.11); POTASSIUM 4.3 mEq/L (3.5-4.5)
[2024-04-08] MEDS ORDERED: fentaNYL 50 MCG/ML 1 ML SYRINGE/VIAL [PACU/SDC ONLY] IV PRN (14:30)
[2024-04-08] MEDS ORDERED: Meperidine 50 MG/ML 1 ML VIAL IV PRN (14:30)
[2024-04-08] MEDS ORDERED: hydrALAZINE 20 MG/ML 1 ML VIAL IV PRN (14:30)
[2024-04-08] MEDS ORDERED: Ondansetron 4 MG/2 ML VIAL IV PRN ×2 (14:30→17:30)
[2024-04-08] MEDS ORDERED: HYDROmorphone 1 MG/1 ML SYRINGE [PACU/SDC ONLY] IV PRN (14:30)
[2024-04-08] MEDS ORDERED: COUMADIN 6MG6 MG/TAB PO (14:33)
[2024-04-08] MEDS ORDERED: COZAAR100 MG (14:34)
[2024-04-08] MEDS ORDERED: MIRALAX119G PO (14:36)
[2024-04-08] MEDS ORDERED: ePHEDrine 50 MG/ML VIAL ONE (16:20)
[2024-04-08] MEDS ORDERED: Lidocaine 2% (20 MG/ML) 20 ML UROJET UR ONE (16:42)
[2024-04-08] MEDS ORDERED: Iohexol 350 - 100 ML VIAL URETER-B ONE ×2 (16:42)
[2024-04-08] MEDS ORDERED: Morphine 4 MG/ML VIAL IV PRN (17:30)
[2024-04-08] MEDS ORDERED: Naloxone 0.4 MG/ML VIAL IV PRN (17:30)
[2024-04-08] MEDS ORDERED: Hyoscyamine 0.125 MG Sublingual TAB SL PRN (17:30)
[2024-04-08] MEDS ORDERED: Acetaminophen 325 MG TAB PO PRN (17:30)
[2024-04-08] MEDS ORDERED: NORCO 325 MG-51 TAB PO (17:33)
[2024-04-08 18:05] VITALS: BP 155/87; PULSE 97; TEMP 97.2
[2024-04-08 18:19] VITALS: TEMP 97.3
[2024-04-08] MEDS ORDERED: Acetaminophen 500 MG TAB PO SCH (18:30)
[2024-04-08 18:36] VITALS: BP 165/58; PULSE 67
--- NOTE | 2024-04-08 19:04 | NUR ---
180- PT BACK TO BAY 1 FROM PACU. VSS. REPORT RECIEVED FROM ISABEL VILLA. DAUGHTER AT BEDSIDE. PT AMBULATED TO BATHROOM. SAYS "I FEEL LIKE I HAVE TO PEE ALOT". STAYED WITH PT IN BATHROOM. 183- PT BACK TO ROOM. PT TAKING SIPS OF WATER BUT NOT WANTING ANYTHING TO EAT. PT SAYS "I AM READY TO GO". 184- DISCHARGE PAPERWORK GIVEN TO PT AND DAUGHTER. ALL QUESTIONS ANSWERED. 1899- PT TRANSFERRED OUT OF THE HOSPITAL VIA WHEELCHAIR TO OWN PRIVATE VEHICLE DRIVEN BY DAUGHTER.
== END 2024-04-08 19:00 | disposition home or self-care (01) ==
LOC: SDCO 12:31
PROVIDERS: Nurse Anesthetist, Certified Registered
DX: N20.0 Calculus of kidney (principal); R31.0 Gross hematuria; Z86.718 Personal history of other venous thrombosis and embolism; Z79.01 Long term (current) use of anticoagulants
CPT/HCPCS: C1769; C1894; C2617; J0737; J1100; J2405; J2704; J3010; J7120; Q9967